=== PATIENT | male | born 1980 | race Caucasian/White ===

== ENCOUNTER 2017-08-11 05:40 | Day surgery (SDC) | payer OTHER ==
[~2017-08-11] VITALS: Ht 182.9 cm; Wt 92.5 kg
[~2017-08-11 05:40] MED LIST: LORATADINE10 M2 PO; NAPROSYN500 MG PO; SUDAFED 12-HOU120 MG PO
--- NOTE | 2017-08-11 10:14 | NUR ---
08/11/17 Tommy4 Gloria Deluca 4175 PT ARRIVED AWAKE AND TALKING. RESP EVEN AND UNLABORED ON RA. VSS. ICE ON LEFT LOWER ABD ON ARRIVAL. BP NOTED BY [employer]DC[employer] TEACHER. 1000 PT VSS, HEADED TO DS.
[2017-08-11] MEDS ORDERED: HYDROCODON-ACE1 EAC8 PO (10:28)
--- NOTE | 2017-08-11 11:48 | NUR ---
LE 1045 UP TO BATHROOM WITH ONE PERSON ASSIST. VOIDED. BACK IN BED DRINKING COFFEE. 1115 GETTING DRESSED. 1120 DC INSTRUCTIONS GIVEN TO PT/SPOUSE. LEFT VIA W/C.
--- NOTE | 2017-08-11 13:59 | NUR ---
PT RESTING IN BED-ALERT AND ORIENTED. HE SHARED HE HAD BEEN PUTTING OFF SURGERY BECAUSE OF ADDS ON TV FOR HERNIA MESH SURGERIES GONE BAD LAW SUITS. HE FINALY DECIDED HE NEEDED TO GET IT TAKEN CARE OF-SEEMS TO HAVE PUT THOSE CONCERNS ASIDE. DECLINED PRAYER AT THIS TIME, WILL FOLLOW NEEDED
--- NOTE | 2017-08-12 06:28 | OR ---
[facility] [address], [place] [address] Signed DATE OF OPERATION: 08/11/2017 SURGEON: Sabino Lima MD PREOPERATIVE DIAGNOSIS: Left inguinal hernia. POSTOPERATIVE DIAGNOSIS: Reducible left indirect inguinal hernia. PROCEDURE: Left Charmaine onlay mesh inguinal herniorrhaphy. ESTIMATED BLOOD LOSS: None. 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 However, in November of 2016, he was helping out a friend's wedding. He lifted a huge canister of beans and he felt pulling and tearing in his left groin. He said it has gotten progressively larger each month that has passed. He said he could not ignore the pain any more, so he went to his primary care provider. He was then asked to see me with his left inguinal hernia. He said the pain is anywhere from a 5 to 10/10 depending on his activity level. It is clearly affecting him at work as well. I gave Jay a book on hernias in the office and we reviewed that together. He understands the difference between a primary suture repair and a mesh repair. He understands expected intraop and postop course. There is risk of surgery including, but not limited to, bleeding, infection, scarring, change in contour of the skin, damage to the nerves, ischemic orchitis, recurrent hernias, and chronic pain. He had expressed understanding and wished to proceed. PROCEDURE NOTE: I have met with Jay, his , and mother in our preop area. We all agreed it was the left groin and we marked that appropriately. Jay was then taken into the operating room and placed in the supine position under general endotracheal tube anesthesia. He was given preoperative antibiotics along with subcutaneous heparin. SCDs were utilized. He was then prepped and draped in the usual sterile fashion. After this, a standard oblique incision was made in his left groin and carried down through the tissue bluntly and with the cautery. We could see where Jay had split the external oblique fascia along its length from his hernia. We went ahead and utilized that split area and opened it sharply with a knife. The iliohypogastric nerve was visualized and protected throughout the case. The ilioinguinal nerve was intimately involved with the cord structures and the hernia sac, so we had to sacrifice that back at the level of the muscle. We then elevated the cord structures at the level of the pubic tubercle with the help of the Electronically Signed By: SABINO LIMA MD 08/12/17 0628 PATIENT NAME: HAYDEN FRANCE OPERATIVE REPORT DATE OF : 78 PHYSICIAN: SABINO LIMA MD REPORT #: [id number] REPORT IS CONFIDENTIAL AND NOT TO BE RELEASED WITHOUT AUTHORIZATION [facility] [address] [place] [id number] Signed Ginger drain. Direct space was fine. We opened the cord structures at the level of the deep ring on the anteromedial side. We encountered his moderate-sized inguinal hernia sac. Then inguinal hernia sac was from the cord structures bluntly with the help of the cautery. The hernia sac was opened and we made sure all contents were reduced into the abdomen. The neck of the hernia sac was suture ligated with 2-0 PDS suture x2. The hernia sac was then amputated and passed off the field. After this, a piece of flat Prolene mesh was cut to fit his groin and a slit was made in the groin to accommodate the cord structures at the level of the deep ring. The mesh was held in place medially and laterally with help of running #1 Prolene suture. This gave excellent coverage of direct and indirect spaces. There was no undue tension of the mesh around the cord structures at the level of the deep ring. Local anesthetic was then copiously injected into the wound. The wound was irrigated and suctioned out until clear. The external oblique fascia was then closed over the repair with help of a running 2-0 PDS suture. The Kinga's fascia was reapproximated with a running 3-0 Monocryl suture. The dermis was reapproximated with interrupted 3-0 subcuticular Monocryl sutures. The skin edges were then reapproximated in a running 6-0 fast absorbing plain gut suture. Dry gauze and tape were then applied. Jay was then awakened from his anesthesia, extubated in the OR, and taken to the recovery room in stable condition. Sabino Lima MD [facility] /[id number] cc: Steven Treviño DO Electronically Signed By: SABINO LIMA MD 08/12/17 0628 PATIENT NAME: HAYDNE FRANCE OPERATIVE REPORT DATE OF : 78 PHYSICIAN: SABINO LIMA MD REPORT #: [id number] REPORT IS CONFIDENTIAL AND NOT TO BE RELEASED WITHOUT AUTHORIZATION
== END 2017-08-11 11:20 | disposition home or self-care (01) ==
LOC: DS 05:40
PROVIDERS: Colon & Rectal Surgery
PROC: 0YU60JZ Supplement Left Inguinal Region with Synthetic Substitute, Open Approach (ICD-10-PCS; principal; 2017-08-11 06:45)
DX: K40.90 Unilateral inguinal hernia, without obstruction or gangrene, not specified as recurrent (principal); F41.0 Panic disorder [episodic paroxysmal anxiety]; Z98.890 Other specified postprocedural states
CPT/HCPCS: 00830; C1781; J0690; J1644; J1885; J2250; J2405; J2704; J2710; J3010; J7120

== ENCOUNTER 2024-03-11 01:09 | Emergency (ER) | payer OTHER ==
[~2024-03-11] VITALS: Ht 182.9 cm; Wt 98.4 kg
[~2024-03-11 01:09] MED LIST changes: +HYDROCODON-ACE1 EAC8 PO
[2024-03-11] MEDS ORDERED: LISINOPRIL-HCT1 EACH PO (01:17)
[2024-03-11] MEDS ORDERED: ALLOPURINOL300 MG PO (01:18)
[2024-03-11] MEDS ORDERED: KETOROLAC TROMETHAMINE 60 MG/2 ML VIAL IM ONE (01:30)
[2024-03-11] MEDS ORDERED: CYCLOBENZAPRINE HCL 10 MG TAB PO ONE (01:30)
[2024-03-11] MEDS ORDERED: TRAMADOL HCL50 MG PO (02:15)
[2024-03-11] MEDS ORDERED: MORPHINE SULFATE 10 MG/ML VIAL IM ONE (02:15)
[2024-03-11] MEDS ORDERED: CELEBREX100 MG PO (02:17)
[2024-03-11] MEDS ORDERED: TRAMADOL HCL 50 MG HOME.PACK PO ONE (02:30)
[2024-03-11 03:00] VITALS: BP 125/87
== END 2024-03-11 03:00 | disposition home or self-care (01) ==
LOC: ED 01:09
DX: S43.422A Sprain of left rotator cuff capsule, initial encounter (principal); X58.XXXA Exposure to other specified factors, initial encounter; I10 Essential (primary) hypertension; Z79.899 Other long term (current) drug therapy
CPT/HCPCS: 73030; 96372; 99283-25; A9270; J2270